=== PATIENT | male | born 1960 | race Caucasian/White ===

== ENCOUNTER 2022-01-29 09:30 | Outpatient (CLI) | payer BC, SELFPAY ==
--- NOTE | ~2022-01-29 | XR_ITS ---
XR hip RT min 2V 01/29/2022 09:49 Indication: Osteoarthritis of the head. Procedure: 2 views right hip Comparison: No prior studies for comparison. Findings: There is severe osteoarthritis of the right hip with subchondral sclerosis and marginal ost eophytes. No fracture or traumatic malalignment. No significant soft tissue abnormality. No foreign b odies. Impression: 1: Severe osteoarthritis of the right hip. Reviewed, dictated and finalized at location B. Impression: 1: Severe osteoarthritis of the right hip.
== END 2022-01-29 09:31 | disposition home or self-care (01) ==
LOC: ANHIMG 09:40
PROVIDERS: PCP Family Medicine; Visit Provider Family Medicine
DX: M16.11 Unilateral primary osteoarthritis, right hip (principal)
CPT/HCPCS: 73502

== ENCOUNTER 2023-12-04 20:04 | Emergency (ER) | payer BC, SELFPAY ==
--- NOTE | ~2023-12-04 | XR_ITS ---
XR knee LT min 4V DATE: 12/04/2023 20:38 INDICATION: Left knee pain TECHNIQUE: 4 views COMPARISON: None FINDINGS: Enthesopathy of the patella at the patellar tendon insertion site. Small suprapatellar knee joint effusion may be present. No fracture, dislocation, periosteal reaction or bone destruction. Slight periarticular spurring of the patella. Joint spaces are well preserved. No radiopaque intra-ar ticular loose body or chondrocalcinosis. IMPRESSION: Cannot exclude small suprapatellar knee joint effusion No fracture or bone destruction Slight periarticular spurring of the patella. Joint spaces are well preserved. Reviewed, dictated and finalized at location J.
[2023-12-04 20:15] VITALS: BP 139/67; PULSE 80; RESP 18; TEMP 37; O2SAT 96
--- NOTE | 2023-12-04 21:01 | ED.GENADULT ---
HPI - General Adult General Chief complaint: Extremity Injury, Lower Stated complaint: L knee pain Time Seen by Provider: 12/04/23 20:27 History of Present Illness HPI narrative: Jose Ceja is a 63 y/o male who presents with reports of having pain to his left knee for a couple weeks and today it gave out on him and he almost fell but grabbed the wall and then has been unable to put weight on his left knee due to severe pain. Denies falling/ no previous known knee injury Related Data Allergies Allergy/AdvReac Type Severity Reaction Status Date / Time Penicillins Allergy Unknown Verified 12/04/23 20:05 Review of Systems Review of Systems: All systems reviewed & are unremarkable except as noted in HPI and below PMFSH Family History Family History Sibling Family history of malignant neoplasm Social History Social History Smoking status: Current every day smoker Alcohol intake: current Exam Narrative: GENERAL: Well-appearing, well-nourished, and in no acute distress. HEAD: Normocephalic, atraumatic. EYES: PERRLA and EOMI. ENT: Nares clear, no rhinorrhea or epistaxis. NECK: Supple. No adenopathy or masses. No carotid bruits or JVD CHEST: Clear to auscultation. No respiratory distress. No wheezes rales or rhonchi HEART: Regular rate and rhythm. No murmur heard. Normal peripheral pulses. ABDOMEN: Soft, nontender, nondistended, normal active bowel sounds. EXTREMITIES: left knee + reproducible pain to the posterior and the anterior lower patella SKIN: Warm, dry, no rash. NEURO: No focal deficits. Alert and oriented x3. PSYCH: Normal mood and affect. Course Vital Signs Vital signs: Vital Signs Temperature 37.0 C 12/04/23 20:15 Pulse Rate 80 12/04/23 20:15 Respiratory Rate 18 12/04/23 20:15 Blood Pressure 139/67 12/04/23 20:15 Pulse Oximetry 96 12/04/23 20:15 Oxygen Delivery Room Air 12/04/23 20:15 Temperature 37.0 C 12/04/23 20:15 Pulse Rate 80 12/04/23 20:15 Respiratory Rate 18 12/04/23 20:15 Blood Pressure 139/67 12/04/23 20:15 Pulse Oximetry 96 12/04/23 20:15 Oxygen Delivery Room Air 12/04/23 20:15 Medical Decision Making MDM Narrative Medical decision making narrative: left knee + reproducible pain to the posterior and the anterior lower patella Concern for : ligament / tendon injury/ sprain/ fracture plan to treat his pain and check an XR Left knee XR: : Cannot exclude small suprapatellar knee joint effusion No fracture or bone destruction Slight periarticular spurring of the patella. Joint spaces are well preserved. with the small knee joint effusion concern for ligament injury / plan to place pt in knee immobilizer / crutches close BELLA therapy and close follow up with Ortho d/c plan discussed with pt and he and his agree with plan All questions answered. Medical Records Medical records reviewed: Yes I reviewed the external patient's medical records. Vital Signs Vital Signs: Vital Signs Temperature 37.0 C 12/04/23 20:15 Pulse Rate 80 12/04/23 20:15 Respiratory Rate 18 12/04/23 20:15 Blood Pressure 139/67 12/04/23 20:15 Pulse Oximetry 96 12/04/23 20:15 Oxygen Delivery Room Air 12/04/23 20:15 Temperature 37.0 C 12/04/23 20:15 Pulse Rate 80 12/04/23 20:15 Respiratory Rate 18 12/04/23 20:15 Blood Pressure 139/67 12/04/23 20:15 Pulse Oximetry 96 12/04/23 20:15 Oxygen Delivery Room Air 12/04/23 20:15 Vitals reviewed by me. Imaging Data My impression: Impressions Knee X-Ray 12/04/23 20:44 IMPRESSION: Cannot exclude small suprapatellar knee joint effusion No fracture or bone destruction Slight periarticular spurring of the patella. Joint spaces are well preserved. Discharge Plan Discharge Clinical Impression: Injury of knee, left
[2023-12-04] MEDS: IBUPROFEN 600 MG TABLET PO (21:13)
[2023-12-04] MEDS: HYDROcodone/acetaminophen (*CRX) 5-325 MG TABLET 1 TAB PO (21:14)
--- NOTE | 2023-12-04 21:59 | PC.NURSE ---
patient brought their own crutches today and declined crutches from the ER. patient ambulates well with crutches they brought
[2023-12-04 22:01] VITALS: BP 131/85; PULSE 78; RESP 16; TEMP 36.9; O2SAT 98
== END 2023-12-04 21:55 | disposition home or self-care (01) ==
PROVIDERS: Emergency Provider Nurse Practitioner Family; PCP Family Medicine
DX: S89.92XA Unspecified injury of left lower leg, initial encounter (principal); F17.200 Nicotine dependence, unspecified, uncomplicated; X58.XXXA Exposure to other specified factors, initial encounter
CPT/HCPCS: 73564; 99283; A9270

== ENCOUNTER 2024-01-07 10:57 | Outpatient (CLI) | payer BC, SELFPAY ==
--- NOTE | ~2024-01-07 | XR_ITS ---
AP view of the pelvis and AP and lateral views of the right hip Clinical history: Pain COMPARISON: 01/29/2022 Findings: No acute fracture or dislocation is seen. There is progressive severe osteoarthritis of the right hip joint, with regressive remodeling and flattening of the right femoral head. There is marke d right hip joint space narrowing, especially superiorly, with reactive sclerosis and femoral head ne ck junction osteophyte formation. There is moderate to advanced left hip joint degenerative change, w ith osteophyte formation at the femoral head neck junction.. Soft tissues are unremarkable. Impression: Severe right hip joint osteoarthritis, progressed from prior exam. Moderate to advanced left hip joint osteoarthritis. Reviewed, dictated and finalized at location M. Impression: Severe right hip joint osteoarthritis, progressed from prior exam. Moderate to advanced left hip joint osteoarthritis.
--- NOTE | 2024-01-07 11:12 | ECG_ITS ---
Test Date: 2024-01-07 11:27:16 Measurements Intervals [place] Rate: P: LA: QRS: QRSD: T: QT: QTc: Interpretive Statements SINUS RHYTHM LEFT AXIS DEVIATION INTRAVENTRICULAR CONDUCTION DELAY DELAYED PRECORDIAL R/S TRANSITION BORDERLINE ECG Electronically Signed On 01-07-2024 11:41:56 CDT by Saturnino Zarco D.O.
[2024-01-07 11:30] LABS: Hematocrit 46.3 % (42.0-52.0); Hemoglobin 15.2 g/dL (14.0-18.0)
[2024-01-07 11:40] LABS: Urine Cotinine NEGATIVE
[2024-01-07 11:41] LABS: Albumin Level 4.6 g/dL (3.5-5.1); Estimated Glomerular Filt Rate > 60; Glucose 103 mg/dL (65-110)
== END 2024-01-07 10:58 | disposition home or self-care (01) ==
LOC: ANHIMG 10:58
PROVIDERS: PCP Family Medicine; Visit Provider Orthopaedic Surgery
DX: Z01.818 Encounter for other preprocedural examination (principal); M16.11 Unilateral primary osteoarthritis, right hip; M25.551 Pain in right hip; I10 Essential (primary) hypertension
CPT/HCPCS: 73502; 80307; 82040; 82565; 82947; 85014; 85018; 93005

== ENCOUNTER 2024-02-01 11:15 | Outpatient (RCR) | payer BC, SELFPAY ==
--- NOTE | 2024-01-06 11:51 | PTOPEVAL1 ---
Assessment and note entered by Jose Flor Evaluation Information Assessment Status Evaluation ICD-10 Condition Codes (PT) Pain in left knee M25.562 Onset 12/04/23 Subjective Information Pt. reports that he was walking at work on 12/04/23 and pivoted on the left leg and felt the leg give out. He reports that his knee pain has improved since the initial incident. He reports that doctor was concerned regarding a torn meniscus. Pt. reports that pain is noticed with getting up from a seated position. He states that he is on his feet daily with work, but has trouble with long standing. He reports that he has returned to work, but limits himself. He did enjoy hiking before the injury, but has not been able to hike. He reports that his goal is to be able to reduce his knee pain and be able to walk long distances and return to golf. Reported Pain Level Pain Score 3: Self Report Assessment PT Clinical Summary Pt. is a 63 year old male who enters the clinic with left knee pain. Special testing indicates possible meniscus pathology. Pt. also has hx of severe OA of the right hip, and will likely undergo hip replacement in the coming months. He currently presents with right knee stiffness, impaired gait, impaired flexibility, weakness and pain. Continued skilled PT is indicated in order to improve these areas to allow the pt. to be able to return to walk and normal IADL's without limitation. Plan of Care Interventions Electrical Stimulation,Gait Training,Hot Pack/Cold Pack,Manual Therapy,Neuro Re-education,Patient/ Caregiver Educati,Therapeutic Activities, Therapeutic Exercise PT Services Indicated Yes Treatment Frequency and 2x/week x 6 visits Duration These treatments will address the objective and functional deficits as defined above. The patient will be advanced safely and appropriately in order for the patient to progress towards his/her prior level of function. Additional exercises will be introduced and as well as a comprehensive home exercise program upon discharge, if needed, ?to ensure carryover of functional gains achieved in the clinic. This treatment plan has been reviewed and agreement upon by the patient.
--- NOTE | 2024-01-06 11:52 | OPREHPOC ---
Outpatient Therapy Plan of Care This is a Multidisciplinary Plan of Care that may contain components documented by all disciplines (PT, OT, and ST.) PT Problem 1 PT Problem #1 Knowledge Deficit PT Goal 1 Goal / Goal Update Pt. will be independent with a HEP addressing knee mobility and l.e. strength Target Visit 2 PT Problem 2 PT Problem #2 Pain PT Goal 1 Goal / Goal Update Pt. will report being able to stand for duration of 2-3 hours with 0/10 knee pain on left Target Visit 6 PT Problem 3 PT Problem #3 Impaired Range of Motion PT Goal 1 Goal / Goal Update Pt. will achieve 0-135 degrees left knee active ROM. Target Visit 6 PT Problem 4 PT Problem #4 Impaired Strength PT Goal 1 Goal / Goal Update Pt. will demonstrate 4+/5 bilateral hip abduction strength to improve gait. Target Visit 6
--- NOTE | 2024-01-17 10:49 | PCPTNOTE ---
Pt cancelled due to work contflict.
--- NOTE | 2024-02-03 11:53 | PCPTNOTE ---
Pt canceled stating he could not make it .
--- NOTE | 2024-02-08 12:18 | PCPTNOTE ---
Patient cancelled today's Progress Note visit secondary to a work conflict.
== END 2024-04-05 23:59 | disposition home or self-care (01) ==
LOC: ANHPT 11:15
PROVIDERS: PCP Family Medicine; Visit Provider Orthopaedic Surgery
DX: M25.562 Pain in left knee (principal)
CPT/HCPCS: 97110; 97161

== ENCOUNTER 2024-03-08 09:51 | Outpatient (CLI) | payer BC, SELFPAY ==
[2024-03-08 11:48] LABS: Basophils Percent Auto 0.6 % (0.2-1.2); Eosinophils Absolute Auto 0.1 K/mm3 (0-0.3); Eosinophils Percent Auto 0.9 % (0-4.4); Hematocrit 44.4 % (42.0-52.0); Immature Granulocyte Absolute 0.03 K/mm3 (0.00-0.031); Immature Granulocyte Percent A 0.5 % (0-0.5); Lymphocytes Absolute Auto 1.74 K/mm3 (0.9-3.2); Lymphocytes Percent Auto 27.4 % (18.3-44.2); Mean Corpuscular HGB Conc 33.8 g/dl (32-36); Mean Corpuscular Hemoglobin 31.9 pg (26-34); Mean Corpuscular Volume 94.5 fl (80-100); Mean Platelet Volume 9.6 fl (7.4-10.4); Monocytes Absolute Auto 0.6 K/mm3 (0.1-0.6); Monocytes Percent Auto 9.5 % (2.6-8.5); Neutrophils Absolute Auto 3.9 K/mm3 (1.3-6.7); Neutrophils Percent Auto 61.1 % (45.5-73.1); Platelet Count Result 228 k/mm3 (150-375); Red Cell Distribution Width 12.5 % (11.5-14.5); White Blood Count 6.3 K/mm3 (4.5-10.0)
[2024-03-08 12:01] LABS: Albumin Level 4.7 g/dL (3.5-5.1); Estimated Glomerular Filt Rate > 60; Glucose 100 mg/dL (65-110)
[2024-03-08 12:06] LABS: Hemoglobin A1C 5.7 % (<5.7)
[2024-03-08 12:16] LABS: Urine Cotinine NEGATIVE
[2024-03-08 13:15] LABS: MRSA (PCR) NOT DETECTED (NOT DETECTE)
== END 2024-03-08 09:52 | disposition home or self-care (01) ==
PROVIDERS: PCP Family Medicine; Visit Provider Orthopaedic Surgery
DX: M16.11 Unilateral primary osteoarthritis, right hip (principal); Z01.818 Encounter for other preprocedural examination
CPT/HCPCS: 80307; 82040; 82565; 82947; 83036; 85025; 87641

== ENCOUNTER 2024-03-28 01:05 | Day surgery (SDC) | payer BC, SELFPAY ==
[2024-03-08 10:07] VITALS: BP 157/94; PULSE 74; RESP 16; TEMP 36.8; O2SAT 95; BMI 35.2
--- NOTE | 2024-03-08 10:16 | PC.NURSE ---
Report to the Outpatient Waiting Room, entrance under the green pavilion located off [facility], at time __6:00AM on date ___03/28/24____. Planned Procedure Time: ___7:30AM .? Time changes happen often and if your time is changed the preop area will call you the afternoon before. - You and your visitor will be asked to self-screen and do not enter if you have any COVID symptoms. Please call surgeon if you need to reschedule. - A mask is optional within the hospital at this time. Patients may have clear liquids (water, carbonated beverages, clear teas, apple juice) until 3 hours prior to surgery with a maximum of 20 ounces. - No food from midnight until time of surgery and no smoking. Take only the following medications with a SIP of water on the morning of surgery: NONE DO NOT STOP ANY OF YOUR OTHER PRESCRIPTION MEDICATIONS PRIOR TO SURGERY EXCEPT THE FOLLOWING Medications to discontinue per physician HOLD ALL NSAIDS & VITAMINS/SUPPLEMENTS 7 DAYS PRE-OP PER DR MARIE Date to take last dose 03/20/24 Please no make-up, nail nigerian, hairspray, perfume, deodorant, or body powder the day of surgery.? No jewelry (including any body piercings) or valuables the day of surgery, leave them at home.? Please take a shower or bath the night before, or the morning of, surgery with an antibacterial soap.? Wear comfortable, loose fitting clothing.? - Jewelry must be removed prior to entering the operating room.? Rings and piercings that are not removed may be cut off. - The hospital will not accept responsibility for valuables.? - Please leave all valuables, including medications, at home the day of surgery. If you are going home after surgery, a licensed intermodal owner operator truck driver must drive you home.? - NO public transportation without another adult if you receive anesthesia. - We recommend that an adult stay with you for 24 hours following discharge. - We also recommend that you do not drive, make important decision, drink alcoholic beverages, or take any drugs that were not prescribed by your health care provider for at least 24 hours after your discharge time. Follow any additional instructions given to you from your surgeon. Telephone instructions given to ____PATIENT and asked if any additional questions and then verbalized understanding. Patient advised to call surgeon office or pre surgery nurse liaison [phone] if any additional questions.
[2024-03-28] VITALS (14 sets, daily range): BP systolic 133–171; BP diastolic 79–108; PULSE 65–96; RESP 12–18; TEMP 36.1–36.6; O2SAT 94–100
--- NOTE | ~2024-03-28 | XR_ITS ---
EXAMINATION: XR hip RT min 2V DATE: 03/28/2024 10:13 INDICATION: Right total hip arthroplasty. Postop. TECHNIQUE: 2 views of right hip were obtained. COMPARISON: Right hip radiographs 03/22/2024 FINDINGS: The total right hip arthroplasty in near-anatomic alignment. No fracture. There is gas in t he soft tissues, consistent with recent surgery. IMPRESSION: 1. Total right hip arthroplasty in near-anatomic alignment. Reviewed, dictated and finalized at location A. BRACER
[2024-03-28] MEDS: LACTATED RINGERS 1,000 ML 30 ML IV CONT ×2 (06:15→09:49)
[2024-03-28] MEDS: TRANEXAMIC ACID 1,000MG/ISO100 1,000 MG/100 ML BAG 200 MG IVPB (07:00)
[2024-03-28] MEDS: ACETAMINOPHEN 500 MG TABLET 1000 MG PO (07:00)
--- NOTE | 2024-03-28 07:12 | WPDANESEPPF ---
Anes - Initial Pre Proc Eval Procedure: Operation Date: 03/28/24 07:30 Proposed Procedures p Right Total Hip Arthroplasty - Ten Law MD Date/Time: 03/28/24 07:12 Surgeon: Ten Law MD Pre Op Diagnosis: Prim O A Right Hip Patient Data Age: 63 Gender: M Height: 1.78 m Weight: 111.4 kg Last Vital Signs Temp 98.3 F 03/08/24 10:07 Pulse 74 03/08/24 10:07 Resp 16 03/08/24 10:07 BP 157/94 H 03/08/24 10:07 Pulse Ox 95 03/08/24 10:07 O2 Del Method Room Air 03/08/24 10:07 Allergies Allergy/AdvReac Type Severity Reaction Status Date / Time Penicillins Allergy Unknown Verified 03/08/24 10:01 Home Medications Medication Instructions Recorded Confirmed Type amlodipine 5 mg tablet 5 mg PO HS 12/10/23 03/08/24 History Mushroom Supplement 2 cap PO DAILY 03/08/24 03/08/24 History ibuprofen 125 mg-acetaminophen 250 2 tablet PO Q6-12H PRN Pain 03/08/24 03/08/24 History mg tablet (Motrin Dual Action with Tylenol) krill 1,000 mg-omega-3 170 mg-dha 1 cap PO DAILY 03/08/24 03/08/24 History 50 mg-epa 80 [id number]-[id number] capsule (krill oil) multivitamin 1 tablet PO DAILY 03/08/24 03/08/24 History Patient hx anesthesia problems: none Family hx anesthesia problems: none Results Review: All pre-operative results and documents have been reviewed as part of the pre-operative evaluation. [facility] Surgical History Surgical History History of appendectomy (~1974) History of carpal tunnel release (~2017) Family History Family History Sibling Family history of malignant neoplasm Social History Social History Smoking packs per day: 0.25 Smoking cigarettes per day: 5.0 Years smoked: 8 Smoking pack-years: 2.00 Smoking status: Former smoker Tobacco type: cigarettes Smoking end date: 10/31/85 Alcohol intake: current Drinks per week: 6 Do You Feel Safe in your Home?: Yes Lack of Transportation: No Lack of Food: Never True Current Housing: I Have Housing Concerned About Future Housing: No Difficulty Paying Gas/Electric Bills: No Difficulty Paying for Meds: No Currently Unemployed: No Education: Bachelor's Degree Difficulty w/ Childcare or Family Care: No Living arrangements: with family Additional living arrangements comments: Spiritual care concerns: No Anes - Eval Final PreProcedure Day of Procedure 03/28/24 07:12 Patient weight: obese Heart: regular rate and rhythm Lungs: clear to auscultation Airway: Mallampati scale class II Neurological: alert and oriented Last oral intake: >/= 8 hours ASA classification: II Emergent: no Anesthetic plan: proceed Anesthesia type and monitoring: general ETT and standard monitoring Results Review: All pre-operative results and documents have been reviewed as part of the pre-operative evaluation. HTN, no cp or sob. Good functional status, limited by hip pain. Informed Consent: The patient's anesthetic plan and its attendant risks and benefits were discussed with the patient/family/POA. Questions were solicited and answers provided to the satisfaction of the patient/family/POA.
--- NOTE | 2024-03-28 07:14 | WPDHPUPDATE1 ---
History and Physical Update Update Date/Time: 03/28/24 07:14 History and Physical has been reviewed, including an updated exam of the patient. There are NO changes in the patient's condition. Risks, benefits, and alternatives have been discussed and questions answered. Patient agrees to proceed with procedure.
[2024-03-28] MEDS: ceFAZolin 2 GM/D5W 50 ML 2 GM/50 ML BAG IVPB ×3 (07:30→22:11)
[2024-03-28] MEDS: SODIUM CHLORIDE 0.9% IV 37.7 ML, MORPHINE SULFATE INJ (*CRX) 2 MG, ROPivacaine HCL 1% 2... INFILTRATE (08:15)
[2024-03-28] MEDS: fentaNYL CITRATE INJ (*CRX) 100 MCG/2 ML VIAL 25 MCG IV PUSH ×6 (10:01→10:46)
--- NOTE | 2024-03-28 10:34 | W.PM.PROC2 ---
Procedure Note - Detailed Date of Procedure 03/28/24 Pre-op Diagnosis Right hip degenerative arthritis. Post-op Diagnosis Same Procedure Performed Right Total Hip Arthroplasty Surgeon Ten Law MD Physical Integration Practitioner Thao Reis PA-C Anesthesia General Findings Severe disease. Excellent bone quality. Sizes closely matched templating. Description of Procedure The patient was given preoperative antibiotics. A general anesthetic was administered. The patient was carefully placed in the lateral decubitus position on the PEG board. The shoulders and hips were carefully positioned for component and leg length positioning reference. The hip was prepped and draped in the usual sterile fashion. A longitudinal incision was created over the posterior aspect of the greater trochanter. Careful dissection was brought down through the deep fascia with electrocautery. A minimally invasive optimized posterior approach to the hip was performed. The short external rotators and capsule were taken down in an L-shaped capsulotomy. The tissue was tagged for later repair using number 2 high strength suture. The femoral neck was measured and taken in situ. The femoral head was removed. The acetabulum was carefully exposed. The inferior capsule was released. The labrum was resected. The acetabulum was sequentially reamed to one over the intended cup size. The cup was impacted into position with excellent press-fit. A single screw was placed. Typical anatomic landmarks, including the bony contact points as well as the inferior transverse acetabular ligament were used to confirm cup positioning with preoperative templating. Attention was turned to the femur, which was carefully exposed. The hip was reamed and then broached sequentially. Flexible reaming was performed due to the type A canal. Excellent press-fit was obtained with the broach. The hip was trialed. Measurements were utilized, including the lesser trochanter as well as the center of the femoral head and the tip of the trochanter, and excellent assessment of the offset and leg lengths were confirmed. The real component was impacted into position. Trialing confirmed appropriate leg length and offset with soft tissue balancing as well apparent feel of the leg, both at the knee and the heel. Soft tissues were assessed using the the iliotibial band. Reduction of the posterior capsule and external rotators were also used as a secondary assessment. The hip was copiously irrigated with pulsatile lavage periodically throughout the procedure. The real components were then assembled and reduced. The hip was stable throughout typical maneuvers, including extension, external rotation to 70 degrees, the position of sleep as well as flexion to 90 degrees with internal rotation past 35 degrees. The shake test confirmed stability without impingement. Osteophytes were removed as necessary. The short external rotators and capsule were repaired back to the posterior trochanter through drill holes. The deep fascia was repaired with running number 2 barbed suture, followed by 2-0 Stratafix suture and 3-0 Stratafix suture in the dermis. Steri-Strips were placed on the skin, followed by a sterile occlusive dressing. There were no complications. Meticulous hemostasis was maintained with the AquaMantys device. The patient was brought to the recovery room in stable condition. There were no complications. Physician assistant farm operations manager, Thao Reis PA-C, required for surgery; including patient positioning, draping, tissue retraction, maintaining instrument position, hip dislocation/ relocation, wound closure, and dressing placement. Implants The Accolade II hip stem, 127 degree size 6 , was utilized with excellent press-fit. The 54 mm Trident II acetabular component was impacted with excellent press-fit stability. 10 degree elevated polyethylene liner the +5, 36 mm Biolox ceramic femoral head was utilized. Estimated Blood Loss 200 Drains No Packing No Pathology None sent Complications No immediate complications Condition Stable Disposition PACU [facility] Billing Surgery - Charge Forward: Surgery Billing
--- NOTE | 2024-03-28 14:26 | ADMGEN ---
This patient, Jose Ceja, was admitted to [facility] Surg Room 314-01. Patient/family oriented to hospital policies and general routines including ID bracelet, bed and alarms, visiting hours, pain management, procedures, bathroom and other care routines, personal items, smoking policy, room service/diet, and visiting hours. Information on how to activate the Rapid Response Team has been discussed. Patient/Family are encouraged to report perceived risks to care and to ask questions if they do not understand what they are told or what they should do.
[2024-03-28] MEDS: MELOXICAM 7.5 MG TABLET PO (17:46)
[2024-03-28] MEDS: SENNA/DOCUSATE SODIUM TABLET 2 TAB PO (17:47)
[2024-03-28] MEDS: CYCLOBENZAPRINE HCL 10 MG TABLET PO (21:23)
[2024-03-28] MEDS: amLODIPine BESYLATE 5 MG TABLET PO (21:23)
[2024-03-28] MEDS: oxyCODONE/ACETAMINOPHEN (*CRX) 5-325 MG TABLET 1 TABLET PO (21:23)
[2024-03-28] MEDS: ASPIRIN 81 MG ENTERIC TABLET PO (21:23)
[2024-03-28] MEDS: FAMOTIDINE 20 MG TABLET PO (21:23)
[2024-03-29 01:34] VITALS: BP 134/81; PULSE 87; RESP 16; TEMP 36.4; O2SAT 93
[2024-03-29] MEDS: oxyCODONE/ACETAMINOPHEN (*CRX) 5-325 MG TABLET 1 TABLET PO (04:29)
[2024-03-29 05:08] VITALS: BP 118/72; PULSE 76; RESP 16; TEMP 36.5; O2SAT 96
[2024-03-29] MEDS: ceFAZolin 2 GM/D5W 50 ML 2 GM/50 ML BAG IVPB (06:25)
[2024-03-29 07:02] LABS: Basophils Percent Auto 0.2 % (0.2-1.2); Hematocrit 38.2 % (42.0-52.0); Hemoglobin 12.6 g/dL (14.0-18.0); Immature Granulocyte Absolute 0.04 K/mm3 (0.00-0.031); Immature Granulocyte Percent A 0.4 % (0-0.5); Lymphocytes Absolute Auto 1.81 K/mm3 (0.9-3.2); Mean Corpuscular Hemoglobin 31.6 pg (26-34); Mean Corpuscular Volume 95.7 fl (80-100); Mean Platelet Volume 9.6 fl (7.4-10.4); Monocytes Percent Auto 9.8 % (2.6-8.5); Neutrophils Absolute Auto 7.2 K/mm3 (1.3-6.7); Neutrophils Percent Auto 71.6 % (45.5-73.1); Platelet Count Result 229 k/mm3 (150-375); Red Blood Count 3.99 M/mm3 (4.6-6.20); White Blood Count 10.1 K/mm3 (4.5-10.0)
[2024-03-29 07:12] LABS: Anion Gap 3 mmol/L (4-12); Blood Urea Nitrogen 16 mg/dL (9-20); Calcium 8.7 mg/dL (8.4-10.2); Carbon Dioxide 31 mmol/L (22-30); Chloride 104 mmol/L (98-107); Estimated CRCL calculation 103 ml/min; Estimated Glomerular Filt Rate > 60; Glucose 112 mg/dL (65-110); Potassium 4.7 mmol/L (3.4-5.0); Sodium 138 mmol/L (137-145)
--- NOTE | 2024-03-29 07:59 | P.PNAN_ITS ---
Anes - Prog Note Post-Op Date/Time: 03/29/24 07:59 Cardiovascular status: normal Respiratory status: normal Airway patency: baseline Mental status: baseline Post-Op hydration status: normal Vital Signs: Last Vital Signs Temp 36.5 C 03/29/24 05:08 Pulse 76 03/29/24 05:08 Resp 16 03/29/24 05:08 BP 118/72 03/29/24 05:08 Pulse Ox 96 03/29/24 05:08 O2 Del Method Room Air 03/28/24 20:00 O2 Flow Rate 2 03/28/24 11:45 Pain Score (VAS): 2 I/O: Intake & Output 03/28/24 03/28/24 03/29/24 15:59 23:59 07:59 Intake Total 250 100 450 Output Total 500 650 Balance 250 -400 -200 Laboratory Tests 03/29/24 06:15 03/29/24 06:15 03/28/24 03/29/24 06:52 06:15 WBC 10.1 H RBC 3.99 L Hgb 12.6 L Hct 38.2 L MCV 95.7 MCH 31.6 MCHC 33.0 RDW 13.0 Plt Count 229 MPV 9.6 Immature Gran % (Auto) 0.4 Neut % (Auto) 71.6 Lymph % (Auto) 18.0 L [place] % (Auto) 9.8 H Eos % (Auto) 0.0 Baso % (Auto) 0.2 Lymph # (Auto) 1.81 [place] # (Auto) 1.0 H Eos # (Auto) 0.0 Baso # (Auto) 0.0 Abs Immat Gran (auto) 0.04 H Absolute Neuts (auto) 7.2 H Absolute Nucleated RBC 0.000 Nucleated RBC % 0.0 Sodium 138 Potassium 4.7 Chloride 104 Carbon Dioxide 31 H Anion Gap 3 L BUN 16 Creatinine 0.80 Estim Creat Clear Calc 103 Estimated GFR > 60 Glucose 112 H Calcium 8.7 Blood Type O Negative Antibody Screen Negative Post-procedural complaints: none Patient Feedback: Patient satisfied with anesthetic care.
--- NOTE | 2024-03-29 08:05 | P.DS_ITS ---
DS: Admitting Diagnosis Discharge Date 03/29/24 Admitting Diagnosis Hip arthritis DS: Discharge Diagnosis Discharge Diagnosis (1) Status post total hip replacement, right: Code(s): Z96.641 - Presence of right artificial hip joint Status: Acute Assessment and Plan: Postop day 1: Total hip arthroplasty. Patient tolerated procedure well. No complications. Pain manageable with pain medication. No numbness or tingling. We had a lengthy discussion regarding postoperative wound care, limitations, expectations, and exercises. Patient shows good understanding. Patient has had initial physical therapy and is tolerating it well. DVT prophylaxis: 81 mg baby aspirin b.i.d. for 14 days. Short frequent walks. Pain medication: Percocet. Meloxicam. Patient has followup appointment with Dr. Law in 3 weeks DS: Summary Hospital Course Reason for hospitalization: Total hip arthroplasty Hospital Course: Patient tolerated procedure well. Has had initial PT/OT and made good progress. Status at Discharge Functional status at discharge: uses cane/walker Overall status at discharge: patient is progressing back to baseline Time Spent with Patient Time attestation: Total time spent providing and/or coordinating discharge services: Exam Narrative: Overweight 63 y/o male. Resting comfortably in bed. Wearing compression socks bilaterally. Dressing dry and intact with no drainage. Moderate swelling. No ecchymosis. No erythema. No hematoma. Range of motion limited due to pain. Calf nontender. Thigh nontender. Neurologic status intact. No varicosities. Distal pulses palpable. DS: Data Data Completed and Pending Labs on day of discharge: Labs from last 24 hours 03/29/24 03/28/24 06:15 06:52 WBC 10.1 H RBC 3.99 L Hgb 12.6 L Hct 38.2 L MCV 95.7 MCH 31.6 MCHC 33.0 RDW 13.0 Plt Count 229 MPV 9.6 Immature Gran % (Auto) 0.4 Neut % (Auto) 71.6 Lymph % (Auto) 18.0 L Rooks % (Auto) 9.8 H Eos % (Auto) 0.0 Baso % (Auto) 0.2 Lymph # (Auto) 1.81 Rooks # (Auto) 1.0 H Eos # (Auto) 0.0 Baso # (Auto) 0.0 Abs Immat Gran (auto) 0.04 H Absolute Neuts (auto) 7.2 H Absolute Nucleated RBC 0.000 Nucleated RBC % 0.0 Sodium 138 Potassium 4.7 Chloride 104 Carbon Dioxide 31 H Anion Gap 3 L BUN 16 Creatinine 0.80 Estim Creat Clear Calc 103 Estimated GFR > 60 Glucose 112 H Calcium 8.7 Blood Type O Negative Antibody Screen Negative Discharge Plan Discharge Patient Disposition: Home, Self-Care Discharge Instructions: See green instruction sheets Stand Alone Forms: General Discharge Instructions Follow-up/Referrals: Thao Reis PA [Physician Architecture Professor] - Discharge Medications: New aspirin 81 mg tablet,delayed release (DR/EC) 81 mg PO BID 14 Days Qty: 28 0RF meloxicam 15 mg tablet 15 mg PO DAILY Qty: 30 0RF Rx Instructions: Cut in half. Take 1/2 in morning and 1/2 at night. Take with food. Stop if stomach upset. oxycodone-acetaminophen 5-325 mg tablet 1 - 2 tablet PO Q4-6H PRN (Reason: pain) 7 Days Qty: 30 0RF Continued amlodipine 5 mg tablet 5 mg PO HS multivitamin Tablet 1 tablet PO DAILY [id number] [krill oil] [id number],[id number] mg Capsule 1 cap PO DAILY Mushroom Supplement 2 cap PO DAILY Held ibuprofen-acetaminophen [Motrin Dual Action W-Tylenol] 125-250 mg Tablet 2 tablet PO Q6-12H PRN (Reason: Pain) Hold Instructions: Resume on 04/25/24. Hold while taking Meloxicam
[2024-03-29 08:30] VITALS: BP 114/75; PULSE 73; RESP 16; TEMP 37; O2SAT 94
[2024-03-29] MEDS: SENNA/DOCUSATE SODIUM TABLET 2 TAB PO (08:44)
[2024-03-29] MEDS: ASPIRIN 81 MG ENTERIC TABLET PO (08:44)
[2024-03-29] MEDS: FAMOTIDINE 20 MG TABLET PO (08:44)
[2024-03-29] MEDS: MELOXICAM 7.5 MG TABLET PO (08:45)
[2024-03-29 09:05] VITALS: BP 114/75; PULSE 73; RESP 16; TEMP 37; O2SAT 94
== END 2024-03-29 10:28 | disposition home or self-care (01) ==
LOC: ANHSURGERY 10:12 → ANH3MEDSUR 11:53
PROVIDERS: Physician Assistant Surgical; PCP Family Medicine; Visit Provider Orthopaedic Surgery
PROC: (CPT 27130; principal; 2024-03-28 07:30)
DX: M16.11 Unilateral primary osteoarthritis, right hip (principal); M25.751 Osteophyte, right hip; E66.9 Obesity, unspecified; Z68.34 Body mass index [BMI] 34.0-34.9, adult; Z79.1 Long term (current) use of non-steroidal anti-inflammatories (NSAID); Z98.890 Other specified postprocedural states; Z87.891 Personal history of nicotine dependence; Z80.9 Family history of malignant neoplasm, unspecified
CPT/HCPCS: 27130; 36415; 73502; 80048; 85025; 86850; 86900; 86901; 97110; 97116; 97161; 97165; 97530; 97535; A9270; C1713; C1769; C1776; J0171; J0690; J1100; J1171; J1885; J2003; J2250; J2270; J2405; J2704; J2795; J3010; J7120